=== PATIENT | female | born 1975 | race Caucasian/White ===

== ENCOUNTER 2017-04-10 16:50 | Emergency (ER) | payer OTHER | END 2017-04-10 20:02 | disposition home or self-care (01) | LOC: ER 16:50 | DX: S80.02XA Contusion of left knee, initial encounter (principal); S20.219A Contusion of unspecified front wall of thorax, initial encounter; F17.210 Nicotine dependence, cigarettes, uncomplicated; Z90.721 Acquired absence of ovaries, unilateral; Z98.51 Tubal ligation status; V49.40XA Driver injured in collision with unspecified motor vehicles in traffic accident, initial encounter | CPT/HCPCS: 36415; 80307; G0480 ==